=== PATIENT | male | born 1970 | race Caucasian/White ===

== ENCOUNTER → 2017-11-15 14:19 | Outpatient (CLI) | payer MEDICARE, MEDICAID, SELFPAY ==
--- NOTE | 2017-11-15 14:19 | DT_ITS ---
This patient was seen during an EMR downtime November 08, 2017 - November 15, 2017. This patient may have a combination of paper and electronic documentation or all paper documentation. All documentation is viewable within the e-chart portion of [facility] for each patient visit.
--- NOTE | 2017-11-15 14:29 | RAD_ITS ---
STUDY: X-RAY - CERVICAL SPINE REASON FOR EXAM: Male, 47 years old. Pain, recent injury TECHNIQUE: Three view(s) of the cervical spine were obtained. COMPARISON: None FINDINGS: There are degenerative changes of the anterior atlantoaxial articulation. Normal odontoid process. Normal cervical lordosis. No significant abnormalities are seen in the vertebral bodies. There is mild disc space narrowing at C5-6 and C6-7. There is diffuse uncovertebral hypertrophy. There is no prevertebral soft tissue swelling. The lung apices are unremarkable. RAD/Cerv Spine 2 or 3 Views IMPRESSION: No acute abnormalities are seen in the cervical spine. There are mild degenerative disc changes at C5-6 and C6-7. There is diffuse uncovertebral hypertrophy. Electronically Signed: Elma Dash MD at 22:23 EDT Tel Direct: [phone], Service support ,
--- NOTE | 2017-11-15 14:30 | RAD_ITS ---
STUDY: X-RAY - THORACIC SPINE REASON FOR EXAM: Male, 47 years old. Pain TECHNIQUE: Three view(s) of the thoracic spine were obtained. COMPARISON: None. FINDINGS: Normal kyphosis of the thoracic spine. There is no significant scoliosis. Vertebral body heights are maintained. There are small osteophytes scattered in the thoracic spine. Yung rods are present along the lower thoracic and upper lumbar spine. There is hardware in the T12 vertebral body. Spinal stimulator wires are present. There is mild disc space narrowing scattered in the thoracic spine. The visualized soft tissues are unremarkable. RAD/Thoracic Spine 3 Views IMPRESSION: No acute abnormalities are seen in the thoracic spine. There are surgical changes in the lower thoracic and upper lumbar spine. The hardware is intact. There are mild degenerative changes scattered throughout the thoracic spine. Electronically Signed: Elma Dash MD at 22:36 EDT Tel Direct: [phone], Service support ,
--- NOTE | 2017-11-15 14:30 | RAD_ITS ---
STUDY: X-RAY - LUMBAR SPINE REASON FOR EXAM: Male, 47 years old. Back pain TECHNIQUE: Three view(s) of the lumbar spine were obtained. COMPARISON: None FINDINGS: Normal lumbar lordosis. There is no significant scoliosis. There is normal alignment of the vertebrae. There are moderate-sized osteophytes at L3 and L4. There is moderate disc space narrowing at L3-4. There is atherosclerotic calcification of the abdominal aorta without a demonstrated aneurysm. A spinal stimulator device is present in the right lower back with leads extending into the thoracic region. RAD/Lumbar Spine 2 or 3 Views IMPRESSION: No acute abnormalities are seen in the lumbar spine. There are moderate degenerative disc changes at L3-4. Electronically Signed: Elma Dash MD at 22:28 EDT Tel Direct: [phone], Service support ,
== END ==
PROVIDERS: Visit Provider Anesthesiology Pain Medicine
DX: M54.9 Dorsalgia, unspecified (principal)
CPT/HCPCS: 72040; 72072; 72100

== ENCOUNTER 2018-02-25 11:35 | Day surgery (SDC) | payer MEDICARE, MEDICAID, SELFPAY ==
[2018-02-25] VITALS (8 sets, daily range): BP systolic 115–156; BP diastolic 63–86; PULSE 77–89; RESP 16–18; TEMP 36.4–37.4; O2SAT 92–96; BMI 44.5
--- NOTE | 2018-02-25 13:00 | RAD_ITS ---
PROCEDURE: Spinal stimulator battery change in position check. DATE OF EXAMINATION: February 25, 2018. INDICATION: Male, 48 years old. Prior fusion and back pain. FLUOROSCOPY TIME (if supplied): (0:19) minutes/seconds. Single coned-down intraoperative image was submitted. Intraoperative fluoroscopic services provided for spinal stimulator battery change and position check. RAD/Spine 1 View Any Level IMPRESSION: Intraoperative imaging provided. Electronically Signed: Subhash Botello MD at 9:55 EDT Tel [phone], Service support ,
[2018-02-25] MEDS: Cefazolin 2 GM in 0.9% Normal Saline 100 ML IV (13:52)
== END 2018-02-25 16:08 | disposition home or self-care (01) ==
LOC: SDC 11:39 → AC 11:40
PROVIDERS: Family Provider Internal Medicine; PCP Internal Medicine; Visit Provider Anesthesiology Pain Medicine
PROC: (CPT 63688; principal; 2018-02-25 12:45)
DX: T85.192A Other mechanical complication of implanted electronic neurostimulator of spinal cord electrode (lead), initial encounter (principal); M48.00 Spinal stenosis, site unspecified; M19.90 Unspecified osteoarthritis, unspecified site; I10 Essential (primary) hypertension; J44.9 Chronic obstructive pulmonary disease, unspecified; F32.9 Major depressive disorder, single episode, unspecified; F41.9 Anxiety disorder, unspecified; F20.9 Schizophrenia, unspecified; F17.210 Nicotine dependence, cigarettes, uncomplicated; Z87.820 Personal history of traumatic brain injury; Z79.891 Long term (current) use of opiate analgesic; Z79.82 Long term (current) use of aspirin; Z79.899 Other long term (current) drug therapy
CPT/HCPCS: 00300; 63685; 72020; 76000; J7120; J2405

== ENCOUNTER → 2022-03-06 | Outpatient (CLI) | payer MEDICARE, MEDICAID, SELFPAY ==
[2022-03-09 10:27] LABS: Hepatitis C Antibody Preliminary Reactive (Nonreactive)
== END | disposition home or self-care (01) ==
PROVIDERS: PCP Internal Medicine; Visit Provider Internal Medicine Gastroenterology
DX: B19.20 Unspecified viral hepatitis C without hepatic coma (principal)
CPT/HCPCS: 36415; 86803; 87522; 87902

== ENCOUNTER → 2022-04-02 | Outpatient (CLI) | payer MEDICARE, MEDICAID, SELFPAY ==
--- NOTE | 2022-04-02 07:51 | US_ITS ---
STUDY: ABDOMINAL ULTRASOUND - ELASTOGRAPHY REASON FOR VISIT: Male, 52 years old. Hepatitis C. TECHNIQUE: Liver stiffness measurements were obtained on a [employer] RS 85 ultrasound machine using a CA 1-7 probe following the SRU guidelines. 3 measurements were obtained using a 2-D-SWE method. The IQR/M was 22% suggesting a quality data set. TECHNICAL QUALITY: Adequate. COMPARISON: Comparison is made with prior study done earlier today. FINDINGS: Liver: Hepatomegaly and fatty infiltration of the liver. Median liver stiffness measured 8.9 kPa. US/Elastography Parenchyma/Organ IMPRESSION: Liver stiffness measures 8.9 kPa compatible with F2-F3 (Mild to moderate liver fibrosis) Metavir score. Electronically Signed: Subhash Botello MD at 10:00 EDT ,
--- NOTE | 2022-04-02 07:51 | US_ITS ---
STUDY: ABDOMINAL ULTRASOUND - RIGHT UPPER QUADRANT REASON FOR VISIT: Male, 52 years old . History of hepatitis C. TECHNIQUE: Ultrasound evaluation of the right upper quadrant was performed with real-time and static zavala-scale imaging. TECHNICAL QUALITY: Limited. Examination limited due to obesity. COMPARISON: None. FINDINGS: Liver: The liver is enlarged and measures 21.4 cm. There is increased echogenicity consistent with fatty infiltration. The bile ducts are within normal limits. There is hepatic color flow. The direction of portal flow is hepatopetal. There is no demonstrated mass lesion. Gallbladder: The patient is status post cholecystectomy. Common Bile Duct (C.B.D.): The common bile duct measures 5 mm. Pancreas: Normal size of the head, body and tail of the pancreas. There is increased echogenicity of the pancreas. There is no demonstrated pancreatic mass or cyst. Right Kidney: Normal size of the right kidney. The right kidney measures 12.9 cm x 4.4 cm x 5.8 cm. Normal renal cortex. The right cortex measures 1.5 cm. There is no demonstrated renal mass or cyst. There is no right hydronephrosis. US/Abdomen Limited IMPRESSION: Hepatomegaly and diffuse fatty infiltration of the liver. Electronically Signed: Subhash Botello MD at 9:58 EDT ,
== END | disposition home or self-care (01) ==
PROVIDERS: PCP Internal Medicine; Referring Provider Internal Medicine Gastroenterology; Visit Provider Internal Medicine Gastroenterology
DX: B19.20 Unspecified viral hepatitis C without hepatic coma (principal)
CPT/HCPCS: 76705; 76981